=== PATIENT | male | born 1975 | race Caucasian/White ===

== ENCOUNTER 2019-02-24 11:56 | Inpatient (IN) ==
[~2019-02-24 11:56] MED LIST: Total Joint Mixture (50 ml) IR ONE
[2019-02-24] MEDS ORDERED: CeFAZolin Syr 3,000MG/30 ML 3,000 MG/30 ML SYRINGE IVPB ONE (12:17)
[2019-02-24] MEDS ORDERED: Ethanol\\Acetic Acid\\Na Ace\\Ben 1,000 ML IRRIG.SOLN IR ONE (12:26)
[2019-02-24] MEDS ORDERED: Ringers Solution, Lactated 1,000 ML IVC SCH ×2 (12:30→17:15)
[2019-02-24] MEDS ORDERED: Propofol 500 MG/50 ML INFUS..BTL ONE (12:34)
[2019-02-24] MEDS ORDERED: *HR* FentaNYL (PF) 100 MCG/2 ML VIAL ONE (12:34)
[2019-02-24] MEDS ORDERED: *HR* Midazolam HCl 2 MG/2 ML VIAL ONE (12:34)
[2019-02-24] MEDS ORDERED: Lidocaine -MPF 2% 2 ML VIAL ONE (12:38)
[2019-02-24] MEDS ORDERED: Tranexamic Acid 1,000 MG/10 ML VIAL ONE (12:40)
[2019-02-24] MEDS ORDERED: Dexamethasone 4 MG/ML VIAL ONE (12:43)
[2019-02-24] MEDS ORDERED: Ropivacaine/PF 0.5% 30 ML VIAL ONE (12:45)
[2019-02-24] MEDS ORDERED: *HR* Promethazine 25 MG/ML VIAL IVP PRN ×2 (12:54→17:15)
[2019-02-24] MEDS ORDERED: *HR* HYDROmorphone (PF) 1 MG/ML SYRINGE IVP PRN (12:54)
[2019-02-24] MEDS ORDERED: Gabapentin 300 MG CAPSULE PO ONE (12:54)
[2019-02-24] MEDS ORDERED: Ondansetron 4 MG/2 ML VIAL IVP ONE (12:54)
[2019-02-24] MEDS ORDERED: *HR* OxyCODONE Immed Rel 5 MG TABLET PO PRN ×2 (12:54→17:15)
[2019-02-24] MEDS: Celecoxib 200 MG CAPSULE PO ONE ×2 (13:12→13:13)
[2019-02-24 16:53] LABS: Hematocrit 43.8 % (37.5-50.1); Hemoglobin 15.2 g/dL (12.9-16.9)
[2019-02-24] MEDS ORDERED: Naloxone 0.4 MG/ML INJ IVP PRN (17:15)
[2019-02-24] MEDS ORDERED: traMADol 50 MG TABLET PO PRN (17:15)
[2019-02-24] MEDS ORDERED: Temazepam 15 MG CAPSULE PO PRN (17:15)
[2019-02-24] MEDS ORDERED: MOM Conc 10 ML UD.LIQ PO PRN (17:15)
[2019-02-24] MEDS ORDERED: Ondansetron 4 MG/2 ML VIAL IVP PRN (17:15)
[2019-02-24] MEDS ORDERED: Sennosides 8.6 MG TABLET PO PRN (17:15)
[2019-02-24] MEDS ORDERED: *HR* OxyCODONE/APAP 5/325 TABLET PO PRN (17:15)
[2019-02-24] MEDS: Ascorbic Acid 500 MG TABLET PO SCH (20:21)
[2019-02-24] MEDS: ceFAZolin 3,000 MG in 0.9 % Sodium Chloride 100 ML IVPB SCH (20:41)
[2019-02-25 04:02] LABS: Basophils % 0.1 %; Hematocrit 42.4 % (37.5-50.1); Hemoglobin 14.4 g/dL (12.9-16.9); Immature Granulocytes % 0.5 % (0-4); Lymphocytes # 0.7 K/mcL (0.6-4.6); Lymphocytes % 4.1 %; Mean Corpuscular Volume 85.5 fL (83.0-100.0); Mean Platelet Volume 9.8 fL (9.4-12.4); Monocytes # 0.9 K/mcL (0.0-1.3); Monocytes % 5.3 %; Neutrophils # 15.4 K/mcL (1.6-8.9); Platelet Count 195 K/mcL (140-400); Red Blood Count 4.96 M/mcL (4.19-5.50); Red Cell Distribution Width 12.6 % (11.5-14.5); White Blood Count 17.1 K/mcL (4.3-11.1)
[2019-02-25 04:21] LABS: BUN/Creatinine Ratio 28 (6-26); Blood Urea Nitrogen 25 mg/dL (6-20); Calcium 8.7 mg/dL (8.6-10.3); Carbon Dioxide 25 mEq/L (23-29); Chloride 101 mEq/L (98-107); Glucose 146 mg/dL (70-105); Osmolality,Calculated 289 (280-300); Potassium 3.9 mEq/L (3.5-5.1); Sodium 136 mEq/L (136-145); eGFR For African Americans > 60 (> 60); eGFR For Non-African Americans > 60 (> 60)
[2019-02-25] MEDS: ceFAZolin 3,000 MG in 0.9 % Sodium Chloride 100 ML IVPB SCH (05:08)
[2019-02-25 07:26] VITALS: BP 143/79
[2019-02-25] MEDS: Ascorbic Acid 500 MG TABLET PO SCH (08:39)
[2019-02-25] MEDS ORDERED: Multivit/Ca/Min/Fe/FA 1 TAB TABLET PO SCH (09:00)
[2019-02-25] MEDS ORDERED: *HR* Enoxaparin 30 MG/0.3 ML SYRINGE SQ SCH (12:48)
== END 2019-02-25 15:22 | disposition home health service (06) | DRG 470 ==
LOC: SAMDAY 11:56 → 3NENU 17:15
PROVIDERS: ADMIT Orthopaedic Surgery; ATTEND Orthopaedic Surgery